=== PATIENT | male | born 2000 | race Caucasian/White ===

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

== ENCOUNTER 2024-03-28 19:08 | Emergency (ER) | payer MEDICAID, OTHER ==
[2024-03-28 19:17] VITALS: BP 141/68; O2SAT 99
--- NOTE | 2024-03-28 19:22 | ED Physician Documentation ---
PD HPI LOWER EXT INJURY - Stated complaint Stated Complaint: L FOOT INJ - Chief complaint Chief Complaint: Trauma Ext - History obtained from History obtained from: Patient - Additional information Additional information: He was standing up on a stool today and fell off and hurt his left foot. No other injuries. He is able to walk and bear weight but only gingerly. PD PAST MEDICAL HISTORY - Past Medical History Cardiovascular: None Respiratory: Asthma Endocrine/Autoimmune: None GI: None : None HEENT: None Psych: None Musculoskeletal: None Derm: None - Past Surgical History Past Surgical History: No - Present Medications Home Medications: Ambulatory Orders Medication Instructions Recorded Confirmed Albuterol Sulf [Ventolin Hfa 2 puffs PO PRN PRN 12/24/17 12/24/17 Inhaler] - Allergies Allergies/Adverse Reactions: Allergies Allergy/AdvReac Type Severity Reaction Status Date / Time No Known Drug Allergies Allergy Verified 03/28/24 19:14 - Social History Does the pt smoke?: No Smoking Status: Never smoker Does the pt drink ETOH?: No Does the pt have substance abuse?: No - Immunizations Immunizations are current?: Yes - POLST Patient has POLST: No PD ED PE NORMAL - Vitals Vital signs reviewed: Yes - General General: Alert and oriented X 3, No acute distress - Extremities Extremities: Other (Mild tenderness over the lateral navicular's and proximal fifth metatarsal of the left foot without deformity. No ankle tenderness.) - Psych Psych: Normal mood, Normal affect Results - Vitals Vitals: Vital Signs - 24 hr 03/28/24 19:12 Temperature 36.7 C Heart Rate 72 Respiratory 16 Rate Blood Pressure 141/68 H O2 Saturation 99 Oxygen O2 Source Room air - Rads (name of study) three-view x-ray of the left foot was negative for acute fractures Relevant Findings:: Final report received, EMP independent interpretation of test PD Medical Decision Making - ED course ED course: 24-year-old with an isolated left foot injury. Negative radiography. Placed in a boot and up on crutches pending follow-up with light duty note. Departure - Departure Disposition: 01 Home, Self Care Clinical Impression: Injury of left foot Condition: Good Record reviewed to determine appropriate education?: Yes Instructions: ED Sprain Foot Comments: Ibuprofen as needed for pain. Ice and elevate it. Follow-up with your doctor in a week if not improved. Return for new or worsening symptoms. Forms: PCP List, Activity restrictions
--- NOTE | 2024-03-28 22:29 | XRAY Report ---
PROCEDURE: Foot 3+V LT INDICATIONS: foot inj TECHNIQUE: 3 views of the foot were acquired. COMPARISON: Left ankle radiograph 12/24/2017. FINDINGS: Bones: No fractures or dislocations. No suspicious bony lesions. Soft tissues: No tibiotalar joint effusion. Achilles tendon appears normal. IMPRESSION: No acute bony abnormality. Reviewed by: Pearl Quintero MD, PhD on 03/28/2024 10:27 PM PDT Approved by: Pearl Quintero MD, PhD on 03/28/2024 10:27 PM PDT Station ID: [id number]
== END 2024-03-28 21:50 | disposition home or self-care (01) ==
LOC: ED 19:08
DX: S99.922A Unspecified injury of left foot, initial encounter (principal); W08.XXXA Fall from other furniture, initial encounter; J45.909 Unspecified asthma, uncomplicated
CPT/HCPCS: 99283; 99284